=== PATIENT | female | born 1935 | race Caucasian/White ===

== ENCOUNTER → 2019-03-23 10:17 | Outpatient (POV) | payer MEDICARE, SELFPAY | PROVIDERS: Visit Provider Dermatology | DX: Z00.00 Encounter for general adult medical examination without abnormal findings (principal) ==

== ENCOUNTER → 2019-07-20 09:36 | Outpatient (POV) | payer MEDICARE, SELFPAY | PROVIDERS: Visit Provider Dermatology | DX: Z00.00 Encounter for general adult medical examination without abnormal findings (principal) ==

== ENCOUNTER → 2020-01-18 08:57 | Outpatient (POV) | payer MEDICARE, SELFPAY | PROVIDERS: PCP Dermatology; Visit Provider Dermatology | DX: Z00.00 Encounter for general adult medical examination without abnormal findings (principal) ==

== ENCOUNTER 2020-12-28 19:29 | Emergency (ER) | payer MEDICARE, SELFPAY ==
[2020-12-28 19:31] VITALS: BP 126/71; PULSE 71; RESP 16; TEMP 36.6; O2SAT 99; BMI 17.2
[2020-12-28 19:59] VITALS: BP 135/67; PULSE 70; O2SAT 98
--- NOTE | 2020-12-28 20:07 | ECG_ITS ---
APPROVED REPORT Exam: Resting ECG HR:62 bpm ECG Measurements Heart Rate 62 AXES CA 166 P 21 QRSd 86 QRS -3 QT 434 T 62 QTc 440 Conclusion Sinus rhythm with premature atrial complexes Septal infarct, age undetermined Abnormal ECG Electronically signed by : Chad Menendez, 12/30/2020 07:31:57
--- NOTE | 2020-12-28 20:18 | CT_ITS ---
PROCEDURE INFORMATION: Exam: CT Head Without Contrast Exam date and time: 12/28/2020 8:18 PM Age: 85 years old Clinical indication: Injury or trauma; Fall; Blunt trauma (contusions or hematomas); Consciousness not specified; Patient HX: Patient fell and hit her head yesterday on a door. She is dizzy today. ; Additional info: Fall, head injury TECHNIQUE: Imaging protocol: Computed tomography of the head without contrast. Radiation optimization: All CT scans at this facility use at least one of these dose optimization techniques: automated exposure control; mA and/or kV adjustment per patient size (includes targeted exams where dose is matched to clinical indication); or iterative reconstruction. COMPARISON: No relevant prior studies available. FINDINGS: Brain: There is no acute cortical infarction, intracranial hemorrhage or mass. Cerebral ventricles: The ventricles appear mildly enlarged, but not out of proportion to the degree of parenchymal volume loss. Paranasal sinuses: Visualized sinuses are unremarkable. No fluid levels. Mastoid air cells: Visualized mastoid air cells are well aerated. Bones/joints: Unremarkable. No acute fracture. Soft tissues: Unremarkable. IMPRESSION: No acute intracranial findings.
[2020-12-28 20:30] VITALS: BP 144/70; PULSE 71; O2SAT 96
[2020-12-28 20:33] LABS: Basophils % 0.5 % (0.1-2.0); Eosinophils # 0.1 K/mm3 (0.0-0.4); Eosinophils % 1.3 % (0.1-12.0); Hematocrit 43.6 % (37.0-47.0); Hemoglobin 14.5 g/dL (12.2-16.2); Lymphocytes # 0.8 K/mm3 (0.7-4.5); Lymphocytes % 13.8 % (10-50); Mean Corpuscular HGB Conc 33.2 g/dL (31.8-35.4); Mean Corpuscular Hemoglobin 31.8 pg (27.0-31.2); Mean Corpuscular Volume 95.8 fl (81-99); Mean Platelet Volume 7.2 fl (7.4-10.4); Monocytes # 0.2 K/mm3 (0.1-1.0); Monocytes % 3.7 % (1.7-9.3); Neutrophils # 4.6 K/mm3 (1.8-7.8); Neutrophils % 80.8 % (37.0-80.0); Platelet Count 251 K/mm3 (142-424); Red Blood Count 4.55 M/mm3 (4.20-5.40); Red Cell Distribution Width 13.1 % (11.5-17.5); White Blood Count 5.7 K/mm3 (4.8-10.8)
[2020-12-28 20:40] LABS: Chloride 103 mmol/L (98-107); Potassium 4.1 mmoL/L (3.5-5.1); Sodium 138 mmol/L (136-145)
[2020-12-28 20:43] LABS: Alanine Aminotransferase 21 U/L (12-78); Albumin Level 4.7 g/dl (3.5-5.0); Albumin/Globulin Ratio 1.6 (1.1-1.8); Alkaline Phosphatase 68 U/L (38-126); Anion Gap 11.1 mEq/L (5-15); Aspartate Amino Transferase 44 U/L (14-36); Bilirubin,Total 0.8 mg/dl (0.2-1.3); Blood Urea Nitrogen 15 mg/dl (7-17); Calcium 9.5 mg/dl (8.4-10.2); Carbon Dioxide 28 mmol/L (22.0-30.0); Creatinine Clearance Estimated 34 mL/min (50-200); Estimated Glomerular Filt Rate 95 ml/min (>60); GFR (African American) 116 ML/MIN (>60); Globulin 2.9 g/dL (1.3-3.2); Glucose 124 mg/dl (74-100); Total Protein,Serum 7.6 g/dl (6.3-8.2)
--- NOTE | 2020-12-28 20:43 | PC.NURSE ---
pt to CT
--- NOTE | 2020-12-28 20:54 | [facility].EDGENADL ---
ED Disposition Clinical Impression: Concussion Qualifiers: Encounter type: initial encounter Loss of consciousness presence/duration: without LOC Qualified Code(s): S06.0X0A - Concussion without loss of consciousness, initial encounter Closed head injury Qualifiers: Encounter type: initial encounter Qualified Code(s): S09.90XA - Unspecified injury of head, initial encounter Fall Qualifiers: Encounter type: initial encounter Qualified Code(s): W19.XXXA - Unspecified fall, initial encounter Disposition: Home, Self-Care Condition on Discharge: Fair Instructions: DI for Concussion, DI for Postconcussion Syndrome Additional Instructions: You have been evaluated for fall, closed head injury. You have been diagnosed with a concussion. This is a serious brain injury. Over the next few days you may have forgetfulness, headaches, nausea. Please take Tylenol for pain. Follow-up closely with your primary care doctor. Avoid activities that cause headache. Practice brain rest. Return to the emergency department at once if you have any new or worsening symptoms, or any other concerns Referrals: Graciela Lemus [Primary Care Provider] - Time of Disposition: 21:02 - Critical Care Critical Care Time: No Attestation: On 12/28/20, the high probability of a clinically significant, sudden or life threatening deterioration of the following system(s) required my full and direct attention, intervention and personal management. The time I documented below is in addition to time spent performing reported procedures but includes the following listed in this critical care notation. Medical Decision Making - Medical Records Medical records reviewed: Yes: I reviewed the patient's medical records. - Tom Inquiry Pt receiving controlled substance: No Vital Signs: 12/28/20 19:31 12/28/20 19:59 12/28/20 20:30 Temperature 97.9 F Temperature Source Oral Pulse Rate 70 71 Pulse Rate [Right] 71 Respiratory Rate 16 Blood Pressure 135/67 144/70 H Blood Pressure [Right Arm] 126/71 Blood Pressure Mean 89 96 Blood Pressure Mean [Right Arm] 89 Blood Pressure Source [Right Arm] Automatic Cuff 02 Sat by Pulse Oximetry 99 98 96 Oxygen Delivery Method Room Air Room Air Room Air - Lab Data Lab Results 12/28/20 20:27: WBC 5.7, RBC 4.55, Hgb 14.5, Hct 43.6, MCV 95.8, MCH 31.8 H, MCHC 33.2, RDW 13.1, Plt Count 251, MPV 7.2 L, Neut % (Auto) 80.8 H, Lymph % (Auto) 13.8, [place] % (Auto) 3.7, Eos % (Auto) 1.3, Baso % (Auto) 0.5, Neut # (Auto) 4.6, Lymph # (Auto) 0.8, [place] # (Auto) 0.2, Eos # (Auto) 0.1, Baso # (Auto) 0.0 12/28/20 20:27: Sodium 138, Potassium 4.1, Chloride 103, Carbon Dioxide 28, Anion Gap 11.1, BUN 15, Creatinine 0.60, Estimated Creat Clear 34, Estimated GFR 95, Est GFR ( Amer) 116, Glucose 124 H, Calcium 9.5, Total Bilirubin 0.8, AST 44 H, ALT 21, Alkaline Phosphatase 68, Total Protein 7.6, Albumin 4.7, Globulin 2.9, Albumin/Globulin Ratio 1.6 Result diagrams: 12/28/20 20:27 12/28/20 20:27 - CT Data CT Scan: Head Time Received: 21:[address] Reviewed: Yes: I have reviewed the patient's CT results, I have viewed the radiologist's interpretation Preliminary Findings: Normal/NAD Findings Narrative: IMPRESSION: No acute intracranial findings. Medical Decision Narrative: In summary this is an 85-year-old female presenting to the emergency department with head injury, nausea, dizziness. Patient clinically stable on arrival. Vital signs within normal limits. Concern for concussion, intracranial bleed, skull fracture. Will obtain CBC, CMP, noncontrast head CT. Patient's fall was not preceded by dizziness. She has not had neurologic symptoms over the last few days. No gait abnormalities. No vision changes. No numbness or weakness in her arms or legs. Doubt acute ischemic events. Laboratory results are reassuring. Glucose and electrolytes are within normal limits. Renal function adequate. Noncontrast head CT sh
--- NOTE | 2020-12-28 21:01 | PC.NURSE ---
Pt back from CT
[2020-12-28 21:22] VITALS: BP 140/82; PULSE 71; RESP 18; TEMP 36.7
== END 2020-12-28 21:26 | disposition home or self-care (01) ==
PROVIDERS: Emergency Medicine; Emergency Provider Student in an Organized Health Care Education/Training Program; PCP Internal Medicine
DX: S06.0X0A Concussion without loss of consciousness, initial encounter (principal); W07.XXXA Fall from chair, initial encounter; Y92.010 Kitchen of single-family (private) house as the place of occurrence of the external cause; Z87.891 Personal history of nicotine dependence
CPT/HCPCS: 70450; 80053; 85025; 93005; 99282; 99283

== ENCOUNTER 2021-11-04 01:34 | Emergency (ER) | payer MEDICARE, SELFPAY ==
[2021-11-04 01:50] VITALS: BP 170/84; PULSE 63; RESP 18; TEMP 36.4; O2SAT 97; BMI 17.2
--- NOTE | 2021-11-04 01:57 | CT_ITS ---
PROCEDURE INFORMATION: Exam: CT Head Without Contrast Exam date and time: 11/04/2021 2:35 AM Age: 86 years old Clinical indication: Injury or trauma; Fall; Blunt trauma (contusions or hematomas); Without loss of consciousness; Injury details: Fell and hit back of head on bedside night table TECHNIQUE: Imaging protocol: Computed tomography of the head without contrast. Radiation optimization: All CT scans at this facility use at least one of these dose optimization techniques: automated exposure control; mA and/or kV adjustment per patient size (includes targeted exams where dose is matched to clinical indication); or iterative reconstruction. COMPARISON: CT HEAD/BRAIN WO CON 12/28/2020 8:43 PM FINDINGS: Brain: No acute bleed or edema. Advanced central and peripheral cerebral atrophy with changes of chronic deep white matter ischemia within lateral periventricular white matter. Similar findings on 12/28/2020. Cerebral ventricles: Moderate atrophy related global ventriculomegaly. No midline shift. Paranasal sinuses: Small mucous retention cyst anterior aspect of the left maxillary antrum. Visualized sinuses are otherwise unremarkable. No fluid levels. Mastoid air cells: Visualized mastoid air cells are well aerated. Vasculature: Intracranial artery density is normal. Bones/joints: Unremarkable. No acute fracture. Soft tissues: Small scalp contusion right parietooccipital region. IMPRESSION: 1. No evidence of acute intracranial bleed or focal cerebral edema. Advanced central and peripheral cerebral atrophy with moderate atrophy related global ventriculomegaly and chronic deep white matter ischemic changes within lateral periventricular white matter. 2. The calvarium is intact. 3. Small scalp contusion right parietooccipital region.
--- NOTE | 2021-11-04 01:57 | CT_ITS ---
PROCEDURE INFORMATION: Exam: CT Cervical Spine Without Contrast Exam date and time: 11/04/2021 2:38 AM Age: 86 years old Clinical indication: Injury or trauma; Fall; Blunt trauma; Injury details: Hit back of head on bedside night table TECHNIQUE: Imaging protocol: Computed tomography images of the cervical spine without contrast. Radiation optimization: All CT scans at this facility use at least one of these dose optimization techniques: automated exposure control; mA and/or kV adjustment per patient size (includes targeted exams where dose is matched to clinical indication); or iterative reconstruction. COMPARISON: CT HEAD/BRAIN WO CON 11/04/2021 2:35 AM FINDINGS: Bones/joints: No acute fracture. Normal alignment. Discs/Spinal canal/Neural foramina: Intervertebral disc space narrowing at C3-C4, C4-C5, and C5-C6. There is prominent bilateral facet degeneration noted throughout the cervical spine. Left C3-C4, right C5-C6, and left C6-C7 exit foraminal encroachment identified. There is narrowing hypertrophic changes between the anterior arch of C1 and the dens of C2. Calcification of the C1-C2 transverse ligament is noted. Lungs: Lung apices are normal. Soft tissues: Unremarkable. IMPRESSION: 1. No evidence of acute fracture or malalignment. 2. Advanced osteoarthritis of the cervical spine.
--- NOTE | 2021-11-04 01:57 | XR_ITS ---
PROCEDURE INFORMATION: Exam: XR Chest Exam date and time: 11/04/2021 2:38 AM Age: 86 years old Clinical indication: Injury or trauma; Fall; Blunt trauma (contusions or hematomas) TECHNIQUE: Imaging protocol: XR of the chest. Views: 2 views. COMPARISON: No relevant prior studies available. FINDINGS: Lungs: Mild pulmonary emphysema. There are multiple calcified granulomas scattered throughout both lung tran. No consolidation. There is no evidence of pulmonary vascular congestion. Pleural spaces: Unremarkable. No pleural effusion. No pneumothorax. Heart/Mediastinum: Heart size is normal. The superior mediastinum is not widened. Bones/joints: There is dextroconvex lower thoracic and upper lumbar scoliosis. Soft tissues: Changes of left mastectomy. There are clips identified within the left axillary region, compatible with prior left axillary lymph node dissection. IMPRESSION: No acute intrathoracic disease.
[2021-11-04 02:00] VITALS: BP 138/70; PULSE 59; O2SAT 100
--- NOTE | 2021-11-04 02:04 | XR_ITS ---
PROCEDURE INFORMATION: Exam: XR Pelvis Exam date and time: 11/04/2021 2:41 AM Age: 86 years old Clinical indication: Injury or trauma; Fall; Blunt trauma (contusions or hematomas); Bilateral; Pelvic region TECHNIQUE: Imaging protocol: XR pelvis. Views: 1 or 2 view. COMPARISON: No relevant prior studies available. FINDINGS: Bones/joints: No acute fracture. There is benign enthesopathy noted along the greater trochanters. Soft tissues: There are calcified phleboliths within the right hemipelvis. IMPRESSION: No evidence of acute fracture or overlying soft tissue swelling.
--- NOTE | 2021-11-04 02:21 | [facility].EDFALL ---
ED Disposition Clinical Impression: Concussion without loss of consciousness Qualifiers: Encounter type: initial encounter Qualified Code(s): S06.0X0A - Concussion without loss of consciousness, initial encounter Disposition: Home, Self-Care Condition on Discharge: Good Instructions: DI for Concussion Additional Instructions: see pcp for follow up Referrals: Graciela Lemus [Primary Care Provider] - - Critical Care Critical Care Time: No Attestation: On , the high probability of a clinically significant, sudden or life threatening deterioration of the following system(s) required my full and direct attention, intervention and personal management. The time I documented below is in addition to time spent performing reported procedures but includes the following listed in this critical care notation. Medical Decision Making - Medical Records Medical records reviewed: Yes: I reviewed the patient's medical records. - Tom Inquiry Pt receiving controlled substance: No Vital Signs: 11/04/21 01:50 11/04/21 02:00 Temperature 97.6 F Temperature Source Oral Pulse Rate 59 L Pulse Rate [Apical] 63 Respiratory Rate 18 Blood Pressure 138/70 Blood Pressure [Right Arm] 170/84 H Blood Pressure Mean 92 Blood Pressure Mean [Right Arm] 112 Blood Pressure Source [Right Arm] Automatic Cuff Blood Pressure Position [Right Arm] Sitting 02 Sat by Pulse Oximetry 97 100 Oxygen Delivery Method Room Air - Lab Data Lab results reviewed: Yes: I reviewed the patient's lab results. Orders (Tests/Meds): ORDERS Category Date Time Status XR chest 2V Stat Exams 11/04/21 01:57 Taken XR pelvis 1-2V Stat Exams 11/04/21 02:04 Taken - Radiology Data #1 Image(s): Chest, Pelvis Image Reviewed: Yes I have reviewed radiologist's interpretation Preliminary Findings: No Fracture Seen - CT Data CT Scan: Head, C-Spine Time Received: 03:[address] Reviewed: Yes: I have viewed the radiologist's interpretation Preliminary Findings: Abnormal, No Fracture Seen Medical Decision Narrative: stable exam and xrays Fall HPI - General Chief Complaint: Fall Stated Complaint: AO 11/04/21 00:30 knot on head Time Seen by Provider: 11/04/21 02:21 Mode of Arrival: Ambulatory Source of Information: Patient, Medical Record Limitations: No Limitations Description of Symptoms (Recalled from ER Triage Doc. by RN): Per patient, roughly one hour ago she got out of bed to let her dog into her bedroom and when she went to get back into bed she slipped on a sock and hit the back of her head on the corner of her bedside table. Patient states that she never lost consciousness, nor did she vomit. Denies any dizziness. Patient does have two knots on the back of her head. - History of Present Illness HPI Narrative: trip type injury and hit head w/o loc - MD complaint: fall Onset (ago): hour(s) Fall from: standing Fall witnessed: no Place fall occurred: home Loss of consciousness: none Symptoms prior to fall: none Context: tripped/slipped Location of injury: head, neck Severity: moderate Associated symptoms (after fall): denies - Related Data Home Medications Medication Instructions Recorded Confirmed Donepezil HCl [Aricept 10mg 5 mg PO DIRECTED 12/28/20 11/04/21 tablet] Amlodipine Besylate [Amlodipine 5 mg PO DAILY 11/04/21 11/04/21 10mg Tab] Citalopram Hydrobromide 10 mg PO DAILY 11/04/21 11/04/21 [Citalopram 10mg Tablet] Erythromycin Base [Erythromycin 3.5 gm EYE-LEFT DAILY 11/04/21 11/04/21 3.5gm opth oinment] Allergies Allergy/AdvReac Type Severity Reaction Status Date / Time Sulfa (Sulfonamide Allergy Mild I-RASH Unverified 06/17/17 14:41 Antibiotics) [SULFA (SULFONAMIDE ANTIBIOTICS)] [facility] History - Hepatitis A Screen Attestation statement:: This patient has been screened for Hepatitis A risk factors. I have reviewed the patient's past medical hist
[2021-11-04 03:28] VITALS: BP 138/70; PULSE 60; RESP 18; TEMP 36.7; O2SAT 99
== END 2021-11-04 03:30 | disposition home or self-care (01) ==
PROVIDERS: Emergency Provider Emergency Medicine; PCP Internal Medicine
DX: S06.0X0A Concussion without loss of consciousness, initial encounter (principal); Z79.899 Other long term (current) drug therapy; Z88.2 Allergy status to sulfonamides; Z87.891 Personal history of nicotine dependence; Z85.3 Personal history of malignant neoplasm of breast; Z90.13 Acquired absence of bilateral breasts and nipples; W17.89XA Other fall from one level to another, initial encounter; Y92.003 Bedroom of unspecified non-institutional (private) residence as the place of occurrence of the external cause
CPT/HCPCS: 70450; 71046; 72125; 72170; 99285

== ENCOUNTER 2024-06-21 21:28 | Emergency (ER) | payer MEDICARE, SELFPAY ==
[2024-06-21 21:28] VITALS: BP 128/61; PULSE 64; RESP 18; TEMP 36.5; O2SAT 99; BMI 21.6
--- NOTE | 2024-06-21 21:36 | ED_ITS ---
<Statement entered by Leatha Thompson DO - 06/21/24 23:57> I was consulted by the BRITT, and we discussed the complexity of the problems being addressed. I approved the treatment and management plan for this patient's care in the emergency department, thus performing a substantive portion of the medical decision making. Patient neurologically intact upon arrival with concern for possible seizure x 2 versus syncope. Given possible seizure x 2, loaded with Keppra as an antiepileptic. Leatha Thompson DO Discharge Plan Disposition Patient Disposition: Home, Self-Care Prescriptions Prescriptions: New diazepam 10 mg/spray (0.1 mL) spray,non-aerosol 10 mg intranasal ONCE Qty: 2 0RF No Action donepezil 10 MG tablet 5 mg PO DIRECTED Rx Instructions: pt to take 1/2 tab every morning for 1 month then increase to 1 tab. amlodipine 10 MG tablet 5 mg PO DAILY erythromycin 3.5 GM ointment 3.5 gm EYE-LEFT DAILY Patient Comments: APPLY SMALL AMOUNT OF OINTMENT TO EACH EYE AT BEDTIME citalopram 10 MG tablet 10 mg PO DAILY Referrals Follow up/Referrals: Provider,Referral, MD [Primary Care Provider] - See instructions Activity Restrictions/Add. Instructions Additional Instructions/Restrictions: Follow-up with your primary care provider for reassessment of your thyroid levels, thyroid nodules, irregularity on the blood vessel of the heart, and further assessment of possible seizures. If there is another seizure-like episode, I sent a benzodiazepine based nasal spray to give if the patient is having a seizure. Clinical Impressions Clinical Impression: Seizure-like activity, Low TSH level, Low T4, Thyroid nodule, Abnormal computed tomography angiography of head Instructions Patient Instructions: DI for Seizure Disorder -- Adult, DI for Seizure (Not Epilepsy/Seizure Disorder), DI for Seizure Disorder -- Child Print Language Print Language: American Discharge ED Provider: Sherwin Rodriguez General Adult HPI <MELANIE Ny - Last Filed: 06/21/24 22:58> General Chief complaint: Seizure Stated complaint: seizure Time Seen by Provider: 06/21/24 21:36 History of Present Illness HPI narrative: Patient presents for evaluation of possible seizure. Patient at baseline has dementia thus is an unreliable historian. All of the history comes from her caregiver who was present when the events occurred. Patient's caregiver is present at the time my exam. Apparently they were sitting at kitchen table eating and patient had an episode where her head slumped back and she began having jerking motions of her head. Patient was unresponsive for approximately 2 minutes. Caregivers ports that she was disoriented for period of time after this event. She does not know for how long. She then had another episode a very short time later again with shaking of her head followed by an episode of vomiting. Again she was disoriented for period of time afterwards however regained consciousness without assistance. She does not have a known seizure disorder. Patient herself has no recollection of events and denies currently any chest pain shortness of breath fever chills hemoptysis hematochezia melena nausea vomiting diarrhea. Patient appears to be at her functional baseline according to her caregiver. Related Data Home Medications ?Medication ?Instructions ?Recorded ?Confirmed donepezil 10 mg tablet 5 mg PO DIRECTED memory 12/28/20 11/04/21 amlodipine 10 mg tablet 5 mg PO DAILY htn 11/04/21 11/04/21 citalopram 10 mg tablet 10 mg PO DAILY Depression 11/04/21 11/04/21 erythromycin 5 mg/gram (0.5 %) eye 3.5 gm EYE-LEFT DAILY Infection 11/04/21 11/04/21 ointment Previous Rx's ?Medication ?Instructions ?Recorded diazepam 10 mg/spray (0.1 mL) 10 mg (0.1 mL) intranasal ONCE #2 06/22/24 nasal spray sprays Allergies Allergy/AdvReac Type Severity Reaction Status Date / Time Sulfa (Sulfonamide Allergy Mild I-RASH Verified 06/21/24 21:53 Antibiotics) (SULFA (SULFONAMIDE ANTIBIOTICS)) [facility] <MELANIE Ny - Last Filed: 06/21/24 22:58> [facility] Disclaimer: The information contained in this section may have been updated after the patient was seen, as this information can be updated by other users. Social History Smoking Status: Unknown if ever smoked second hand exposure: No alcohol intake: current alcohol intake frequency: 0-2 drinks per day current occupational status: retired Travel in the last 8 weeks: None Other Medical History Have you received the Flu Vaccine for this season: Yes Have you received the Pneumonia Vaccine: No <MELANIE Ny - Last Filed: 06/21/24 22:58> ROS Obtained: Yes Systems reviewed as appropriate & no additional complaints except as documented Physical Exam <MELANIE Ny - Last Filed: 06/21/24 22:58> General General appearance: alert and in no apparent distress Respiratory Respiratory exam: Present normal lung sounds bilaterally Cardiovascular Cardiovascular exam: Present regular rate Neurological Exam Neurological exam: Present alert, CN II-XII intact and normal gait; Absent oriented X3 (Oriented to person but not place or circumstance) or motor sensory deficit Medical Decision Making <MELANIE Ny - Last Filed: 06/21/24 22:58> Medical Records Medical records reviewed: Yes I reviewed the patient's medical records. Screening: Per USPSTF and CDC recommendations, given the prevalence of disease in our region, it is our hospital?s policy to screen for HIV and viral Hepatitis for all patients aged 18 and over and those with ongoing risk factors. Tom Inquiry Pt receiving controlled substance: No Vital Signs: 06/21/24 21:28 06/22/24 01:57 Temperature 97.7 F 97.9 F Temperature Source Oral Pulse Rate 57 L Pulse Rate [Left] 64 Respiratory Rate 18 16 Blood Pressure 114/69 Blood Pressure [Right Arm] 128/61 Blood Pressure Mean [Right Arm] 83 02 Sat by Pulse Oximetry 99 Oxygen Delivery Method Room Air Lab Data Lab results reviewed: Yes I reviewed the patient's lab results. Lab Results 06/21/24 00:35: Urine Color Yellow, Urine Appearance Clear, Urine pH 6.5, Ur Specific Brady 1.015, Urine Protein Negative, Urine Glucose (UA) Negative, Urine Ketones Negative, Urine Blood Trace-i, Urine Nitrate Negative, Urine Bilirubin Negative, Urine Urobilinogen 0.2, Ur Leukocyte Esterase Negative, Urine RBC 3-5, Urine WBC 3-5, Ur Squamous Epith Cells Occasional, Urine Bacteria Trace, Hyaline Casts 3-5 06/21/24 20:45: WBC 5.1, RBC 4.35, Hgb 13.2, Hct 41.5, MCV 95.4, MCH 30.3, MCHC 31.8, RDW 13.1, Plt Count 253, MPV 9.3, Neut % (Auto) 53.2, Lymph % (Auto) 30.9, [place] % (Auto) 8.2, Eos % (Auto) 6.5, Baso % (Auto) 0.8, Neut # (Auto) 2.7, Lymph # (Auto) 1.6, [place] # (Auto) 0.4, Eos # (Auto) 0.3, Baso # (Auto) 0.0, PT 10.3, INR 0.91, Sodium 137, Potassium 3.4 L, Chloride 107, Carbon Dioxide 28, Anion Gap 5.4, BUN 23 H, Creatinine 0.80, Estimated Creat Clear 37, Estimated GFR 68, Est GFR ( Amer) 82, Glucose 108 H, Calcium 9.2, Magnesium 2.2, Total Bilirubin 0.4, AST 44 H, ALT 26, Alkaline Phosphatase 74, Total Creatine Kinase 110, Troponin I < 0.01, Total Protein 7.3, Albumin 4.1, Globulin 3.2, Albumin/Globulin Ratio 1.3, TSH 0.30 L, Free T4 Index 2.7 L, Thyroxine (T4) 8.5, T3 Uptake 32 06/21/24 22:22: Chlamy pneumoniae PCR Not detected, Adenovirus (PCR) Not detected, B. pertussis DNA (PCR) Not detected, Coronavirus OC43 (PCR) Not detected, Coronavirus HKU1 (PCR) Not detected, Coronavirus 229E (PCR) Not detected, SARS-CoV-2 (PCR) Not detected, Coronavirus NL63 (PCR) Not detected, Human Metapneumovir PCR Not detected, Influenza A (H1) PCR Not detected, Influ A (H1N1/09) PCR Not detected, Influenza A (H3) PCR Not detected, Influenza Type A (PCR) Not detected, Influenza Type B (PCR) Not detected, M. pneumoniae (PCR) Not detected, Parainfluenza 1 (PCR) Not detected, Parainfluenza 2 (PCR) Not detected, Parainfluenza 3 (PCR) Not detected, Parainfluenza 4 (PCR) Not detected, RSV (PCR) Not detected, Entero/Rhino (PCR) Not detected 06/22/24 01:13: Troponin I < 0.01 06/21/24 20:45 06/21/24 20:45 Orders (Tests/Meds): ED MEDICATIONS Discontinued Medications Generic Name Dose Route Start Last Admin Trade Name Freq PRN Reason Stop Dose Admin Sodium Chloride 1,000 mls @ 999 mls/hr 06/21/24 21:45 06/21/24 21:55 Sod Chlor 0.9% 1000ml Bag IV 06/21/24 22:45 999 mls/hr .Q1H1M ONE Administration Iopamidol 80 ml 06/21/24 22:20 06/21/24 22:23 Iopamidol-370 (76%);100ml Bottle IV 06/21/24 22:21 80 ml ONCE ONE Administration Ondansetron HCl 4 mg 06/21/24 21:45 06/21/24 21:53 Ondansetron 4mg/2ml Vial IV 06/21/24 21:46 4 mg ONCE ONE Administration Sodium Chloride 40 ml 06/21/24 22:20 06/21/24 22:22 0.9 % Sodium Chloride 50 Ml Vial IV 06/21/24 22:21 40 ml ONCE ONE Administration Sodium Chloride 10 ml 06/21/24 22:20 06/21/24 22:22 Sodium Chloride 0.9% 10ml Syr (Rad Only) IV 06/21/24 22:21 10 ml ONCE ONE Administration ORDERS Category Date Time Status CT angio head Stat Cat Scan 06/21/24 21:[address] angio neck Stat Cat Scan 06/21/24 21:[address] head/brain wo con Stat Cat Scan 06/21/24 21:45 Completed CBC w/Auto Diff [Complete Blood Count Auto Diff] Stat Lab 06/21/24 20:45 Completed CK [Creatine Kinase] Stat Lab 06/21/24 20:45 Completed CMP [Comprehensive Metabolic Panel] Stat Lab 06/21/24 20:45 Completed Full Resp Panel w/COVID ([facility]) Routine Lab 06/21/24 22:22 Completed INR [Prothrombin Time INR] Stat Lab 06/21/24 20:45 Completed Magnesium Stat Lab 06/21/24 20:45 Completed Thyroid Panel Stat Lab 06/21/24 20:45 Completed Trop I [Troponin I] Stat Lab 06/21/24 20:45 Completed Troponin I Q3H Lab 06/22/24 01:13 Completed Troponin I Q3H Lab 06/22/24 04:00 Ordered UA [Urinalysis and Microscopic] Stat Lab 06/21/24 00:35 Completed HEART Score History (anamnesis): Slightly suspicious ECG: Normal Age: >65 years Risk factors: 1-2 risk factors Troponin: </= normal limit HEART Score: 3 Medical Decision Narrative: In summary patient is a 89-year-old female who presents to the emergency department for evaluation of possible seizure. Patient is hemodynamically upon arrival, afebrile currently. Physical exam is remarkable for a patient who appears to be awake and interactive but is oriented only to person not place or circumstance. She has no focal neurologic deficits currently. Pupils equal round reactive to light commendation. Cranial nerves II through XII are intact grossly to exam. Breath sounds are clear and equal bilaterally to the bases with adventitious sounds. Abdomen is soft and nontender with no rebound or guarding or rigidity normal bowel sounds.. Differential diagnosis includes seizure disorder versus space-occupying lesion versus stroke etc. Initial workup will be conducted with CT scan of the head without contrast CTA of the head and neck hematologic labs urinalysis. Initial workup ordered and pending at the time of handoff to Dr. Rodriguez at 2300 hrs. <Sherwin Rodriguez MD - Last Filed: 06/22/24 02:41> Vital Signs: 06/21/24 21:28 06/22/24 01:57 Temperature 97.7 F 97.9 F Temperature Source Oral Pulse Rate 57 L Pulse Rate [Left] 64 Respiratory Rate 18 16 Blood Pressure 114/69 Blood Pressure [Right Arm] 128/61 Blood Pressure Mean [Right Arm] 83 02 Sat by Pulse Oximetry 99 Oxygen Delivery Method Room Air Lab Data Lab Results 06/21/24 00:35: Urine Color Yellow, Urine Appearance Clear, Urine pH 6.5, Ur Specific Brady 1.015, Urine Protein Negative, Urine Glucose (UA) Negative, Urine Ketones Negative, Urine Blood Trace-i, Urine Nitrate Negative, Urine Bilirubin Negative, Urine Urobilinogen 0.2, Ur Leukocyte Esterase Negative, Urine RBC 3-5, Urine WBC 3-5, Ur Squamous Epith Cells Occasional, Urine Bacteria Trace, Hyaline Casts 3-5 06/21/24 20:45: WBC 5.1, RBC 4.35, Hgb 13.2, Hct 41.5, MCV 95.4, MCH 30.3, MCHC 31.8, RDW 13.1, Plt Count 253, MPV 9.3, Neut % (Auto) 53.2, Lymph % (Auto) 30.9, [place] % (Auto) 8.2, Eos % (Auto) 6.5, Baso % (Auto) 0.8, Neut # (Auto) 2.7, Lymph # (Auto) 1.6, [place] # (Auto) 0.4, Eos # (Auto) 0.3, Baso # (Auto) 0.0, PT 10.3, INR 0.91, Sodium 137, Potassium 3.4 L, Chloride 107, Carbon Dioxide 28, Anion Gap 5.4, BUN 23 H, Creatinine 0.80, Estimated Creat Clear 37, Estimated GFR 68, Est GFR ( Amer) 82, Glucose 108 H, Calcium 9.2, Magnesium 2.2, Total Bilirubin 0.4, AST 44 H, ALT 26, Alkaline Phosphatase 74, Total Creatine Kinase 110, Troponin I < 0.01, Total Protein 7.3, Albumin 4.1, Globulin 3.2, Albumin/Globulin Ratio 1.3, TSH 0.30 L, Free T4 Index 2.7 L, Thyroxine (T4) 8.5, T3 Uptake 32 06/21/24 22:22: Chlamy pneumoniae PCR Not detected, Adenovirus (PCR) Not detected, B. pertussis DNA (PCR) Not detected, Coronavirus OC43 (PCR) Not detected, Coronavirus HKU1 (PCR) Not detected, Coronavirus 229E (PCR) Not detected, SARS-CoV-2 (PCR) Not detected, Coronavirus NL63 (PCR) Not detected, Human Metapneumovir PCR Not detected, Influenza A (H1) PCR Not detected, Influ A (H1N1/09) PCR Not detected, Influenza A (H3) PCR Not detected, Influenza Type A (PCR) Not detected, Influenza Type B (PCR) Not detected, M. pneumoniae (PCR) Not detected, Parainfluenza 1 (PCR) Not detected, Parainfluenza 2 (PCR) Not detected, Parainfluenza 3 (PCR) Not detected, Parainfluenza 4 (PCR) Not detected, RSV (PCR) Not detected, Entero/Rhino (PCR) Not detected 06/22/24 01:13: Troponin I < 0.01 Orders (Tests/Meds): ED MEDICATIONS Discontinued Medications Generic Name Dose Route Start Last Admin Trade Name Freq PRN Reason Stop Dose Admin Sodium Chloride 1,000 mls @ 999 mls/hr 06/21/24 21:45 06/21/24 21:55 Sod Chlor 0.9% 1000ml Bag IV 06/21/24 22:45 999 mls/hr .Q1H1M ONE Administration Iopamidol 80 ml 06/21/24 22:20 06/21/24 22:23 Iopamidol-370 (76%);100ml Bottle IV 06/21/24 22:21 80 ml ONCE ONE Administration Ondansetron HCl 4 mg 06/21/24 21:45 06/21/24 21:53 Ondansetron 4mg/2ml Vial IV 06/21/24 21:46 4 mg ONCE ONE Administration Sodium Chloride 40 ml 06/21/24 22:20 06/21/24 22:22 0.9 % Sodium Chloride 50 Ml Vial IV 06/21/24 22:21 40 ml ONCE ONE Administration Sodium Chloride 10 ml 06/21/24 22:20 06/21/24 22:22 Sodium Chloride 0.9% 10ml Syr (Rad Only) IV 06/21/24 22:21 10 ml ONCE ONE Administration ORDERS Category Date Time Status CT angio head Stat Cat Scan 06/21/24 21:[address] angio neck Stat Cat Scan 06/21/24 21:[address] head/brain wo con Stat Cat Scan 06/21/24 21:45 Completed CBC w/Auto Diff [Complete Blood Count Auto Diff] Stat Lab 06/21/24 20:45 Completed CK [Creatine Kinase] Stat Lab 06/21/24 20:45 Completed CMP [Comprehensive Metabolic Panel] Stat Lab 06/21/24 20:45 Completed Full Resp Panel w/COVID ([facility]) Routine Lab 06/21/24 22:22 Completed INR [Prothrombin Time INR] Stat Lab 06/21/24 20:45 Completed Magnesium Stat Lab 06/21/24 20:45 Completed Thyroid Panel Stat Lab 06/21/24 20:45 Completed Trop I [Troponin I] Stat Lab 06/21/24 20:45 Completed Troponin I Q3H Lab 06/22/24 01:13 Completed Troponin I Q3H Lab 06/22/24 04:00 Ordered UA [Urinalysis and Microscopic] Stat Lab 06/21/24 00:35 Completed ECG Data Tracing #1: I reviewed this ECG and interpreted as documented below: Sinus bradycardia, rate of 58, first-degree AV block noted, flattened/inverted T waves in V5 and 6. ECG initial impression date: 06/21/24 ECG initial impression time: 23:25 HEART Score HEART Score: 3 Medical Decision Narrative: In summary patient is a 89-year-old female who presents to the emergency department for evaluation of possible seizure. Patient is hemodynamically upon arrival, afebrile currently. Physical exam is remarkable for a patient who appears to be awake and interactive but is oriented only to person not place or circumstance. She has no focal neurologic deficits currently. Pupils equal round reactive to light commendation. Cranial nerves II through XII are intact grossly to exam. Breath sounds are clear and equal bilaterally to the bases with adventitious sounds. Abdomen is soft and nontender with no rebound or guarding or rigidity normal bowel sounds.. Differential diagnosis includes seizure disorder versus space-occupying lesion versus stroke etc. Initial workup will be conducted with CT scan of the head without contrast CTA of the head and neck hematologic labs urinalysis. Initial workup ordered and pending at the time of handoff to Dr. Rodriguez at 2300 hrs. Jennifer THOMAS: I assumed care of the patient at the time of handoff from the prior provider. On reassessment patient steve hemodynamically stable and has had no further seizure-like activity. 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 CT imaging shows a small aneurysm versus infundibulum that is poorly defined within the left PCOM. Radiology recommends MRA for further assessment. CT scan also shows some thyroid nodules. I had an interactive discussion with patient, patient's family and POA. The story does seem consistent with seizure. Besides Alzheimer's, she has no history of DANDY TENDER disease. On her workup otherwise, her EKG showed only a first-degree AV block, her electrolytes and troponin were unremarkable. Given this is a possible first-time seizure, I do not think that patient necessarily requires initiation of chronic seizure medication. Given the abnormalities found on CT, patient does require further assessment both of her brain with MRI/MRA and ultrasound of the thyroid. Her thyroid and HPA axis also need further assessment with her PCP. I ultimately discharged the patient with nasal diazepam as a rescue medication as well as strict return precautions. <Leatha Thompson, DO - Last Filed: 06/21/24 23:56> Vital Signs: 06/21/24 21:28 06/22/24 01:57 Temperature 97.7 F 97.9 F Temperature Source Oral Pulse Rate 57 L Pulse Rate [Left] 64 Respiratory Rate 18 16 Blood Pressure 114/69 Blood Pressure [Right Arm] 128/61 Blood Pressure Mean [Right Arm] 83 02 Sat by Pulse Oximetry 99 Oxygen Delivery Method Room Air Lab Data Lab Results 06/21/24 00:35: Urine Color Yellow, Urine Appearance Clear, Urine pH 6.5, Ur Specific Brady 1.015, Urine Protein Negative, Urine Glucose (UA) Negative, Urine Ketones Negative, Urine Blood Trace-i, Urine Nitrate Negative, Urine Bilirubin Negative, Urine Urobilinogen 0.2, Ur Leukocyte Esterase Negative, Urine RBC 3-5, Urine WBC 3-5, Ur Squamous Epith Cells Occasional, Urine Bacteria Trace, Hyaline Casts 3-5 06/21/24 20:45: WBC 5.1, RBC 4.35, Hgb 13.2, Hct 41.5, MCV 95.4, MCH 30.3, MCHC 31.8, RDW 13.1, Plt Count 253, MPV 9.3, Neut % (Auto) 53.2, Lymph % (Auto) 30.9, [place] % (Auto) 8.2, Eos % (Auto) 6.5, Baso % (Auto) 0.8, Neut # (Auto) 2.7, Lymph # (Auto) 1.6, [place] # (Auto) 0.4, Eos # (Auto) 0.3, Baso # (Auto) 0.0, PT 10.3, INR 0.91, Sodium 137, Potassium 3.4 L, Chloride 107, Carbon Dioxide 28, Anion Gap 5.4, BUN 23 H, Creatinine 0.80, Estimated Creat Clear 37, Estimated GFR 68, Est GFR ( Amer) 82, Glucose 108 H, Calcium 9.2, Magnesium 2.2, Total Bilirubin 0.4, AST 44 H, ALT 26, Alkaline Phosphatase 74, Total Creatine Kinase 110, Troponin I < 0.01, Total Protein 7.3, Albumin 4.1, Globulin 3.2, Albumin/Globulin Ratio 1.3, TSH 0.30 L, Free T4 Index 2.7 L, Thyroxine (T4) 8.5, T3 Uptake 32 06/21/24 22:22: Chlamy pneumoniae PCR Not detected, Adenovirus (PCR) Not detected, B. pertussis DNA (PCR) Not detected, Coronavirus OC43 (PCR) Not detected, Coronavirus HKU1 (PCR) Not detected, Coronavirus 229E (PCR) Not detected, SARS-CoV-2 (PCR) Not detected, Coronavirus NL63 (PCR) Not detected, Human Metapneumovir PCR Not detected, Influenza A (H1) PCR Not detected, Influ A (H1N1/09) PCR Not detected, Influenza A (H3) PCR Not detected, Influenza Type A (PCR) Not detected, Influenza Type B (PCR) Not detected, M. pneumoniae (PCR) Not detected, Parainfluenza 1 (PCR) Not detected, Parainfluenza 2 (PCR) Not detected, Parainfluenza 3 (PCR) Not detected, Parainfluenza 4 (PCR) Not detected, RSV (PCR) Not detected, Entero/Rhino (PCR) Not detected 06/22/24 01:13: Troponin I < 0.01 Orders (Tests/Meds): ED MEDICATIONS Discontinued Medications Generic Name Dose Route Start Last Admin Trade Name Freq PRN Reason Stop Dose Admin Sodium Chloride 1,000 mls @ 999 mls/hr 06/21/24 21:45 06/21/24 21:55 Sod Chlor 0.9% 1000ml Bag IV 06/21/24 22:45 999 mls/hr .Q1H1M ONE Administration Iopamidol 80 ml 06/21/24 22:20 06/21/24 22:23 Iopamidol-370 (76%);100ml Bottle IV 06/21/24 22:21 80 ml ONCE ONE Administration Ondansetron HCl 4 mg 06/21/24 21:45 06/21/24 21:53 Ondansetron 4mg/2ml Vial IV 06/21/24 21:46 4 mg ONCE ONE Administration Sodium Chloride 40 ml 06/21/24 22:20 06/21/24 22:22 0.9 % Sodium Chloride 50 Ml Vial IV 06/21/24 22:21 40 ml ONCE ONE Administration Sodium Chloride 10 ml 06/21/24 22:20 06/21/24 22:22 Sodium Chloride 0.9% 10ml Syr (Rad Only) IV 06/21/24 22:21 10 ml ONCE ONE Administration ORDERS Category Date Time Status CT angio head Stat Cat Scan 06/21/24 21:[address] angio neck Stat Cat Scan 06/21/24 21:[address] head/brain wo con Stat Cat Scan 06/21/24 21:45 Completed CBC w/Auto Diff [Complete Blood Count Auto Diff] Stat Lab 06/21/24 20:45 Completed CK [Creatine Kinase] Stat Lab 06/21/24 20:45 Completed CMP [Comprehensive Metabolic Panel] Stat Lab 06/21/24 20:45 Completed Full Resp Panel w/COVID ([facility]) Routine Lab 06/21/24 22:22 Completed INR [Prothrombin Time INR] Stat Lab 06/21/24 20:45 Completed Magnesium Stat Lab 06/21/24 20:45 Completed Thyroid Panel Stat Lab 06/21/24 20:45 Completed Trop I [Troponin I] Stat Lab 06/21/24 20:45 Completed Troponin I Q3H Lab 06/22/24 01:13 Completed Troponin I Q3H Lab 06/22/24 04:00 Ordered UA [Urinalysis and Microscopic] Stat Lab 06/21/24 00:35 Completed HEART Score HEART Score: 3 Critical Care <MELANIE Ny - Last Filed: 06/21/24 22:58> Critical Care Time Critical Care Time: No <Leatha Thompson DO - Last Filed: 06/21/24 23:56> Critical Care Time Critical Care Time: Yes Attestation: On 06/21/24, the high probability of a clinically significant, sudden or life threatening deterioration of the following system(s) required my full and direct attention, intervention and personal management. The time I documented below is in addition to time spent performing reported procedures but includes the following listed in this critical care notation. Total Time Total Critical Care Time: 30
--- NOTE | 2024-06-21 21:45 | CT_ITS ---
PROCEDURE INFORMATION: Exam: CT Head Without Contrast Exam date and time: 06/21/2024 9:55 PM Age: 89 years old Clinical indication: Other: Seizure TECHNIQUE: Imaging protocol: Computed tomography of the head without contrast. Radiation optimization: All CT scans at this facility use at least one of these dose optimization techniques: automated exposure control; mA and/or kV adjustment per patient size (includes targeted exams where dose is matched to clinical indication); or iterative reconstruction. COMPARISON: CT HEAD/BRAIN WO CON 11/04/2021 2:35 AM FINDINGS: Brain: No evidence for intracranial hemorrhage, mass lesions or acute stroke. Intracranial vascular calcifications. Mild small vessel ischemic change in the periventricular white matter. Cerebral ventricles: Mild ventricular prominence. Pituitary gland and sella: Negative Paranasal sinuses: Visualized sinuses are unremarkable. No fluid levels. Mastoid air cells: Visualized mastoid air cells are well aerated. Orbital cavities: Negative. Parotid and submandibular glands: Negative Bones: Unremarkable. No acute fracture. Soft tissues: Unremarkable. Vasculature: Negative. Other findings: Moderate generalized atrophy. IMPRESSION: 1. No evidence for intracranial hemorrhage, mass lesions or acute stroke. 2. Intracranial vascular calcifications. 3. Moderate generalized atrophy. 4. Mild small vessel ischemic change in the periventricular white matter. 5. Mild ventricular prominence.
--- NOTE | 2024-06-21 21:50 | CT_ITS ---
PROCEDURE INFORMATION: Exam: CTA Neck With Contrast Exam date and time: 06/21/2024 10:11 PM Age: 89 years old Clinical indication: Other: Seizure TECHNIQUE: Imaging protocol: Computed tomographic angiography of the neck with contrast. Exam focused on the cervical segments of the vasculature. 3D rendering (Not supervised by radiologist): MIP and/or 3D reconstructed images were created by the technologist. Radiation optimization: All CT scans at this facility use at least one of these dose optimization techniques: automated exposure control; mA and/or kV adjustment per patient size (includes targeted exams where dose is matched to clinical indication); or iterative reconstruction. Contrast material: ISOVUE 370; Contrast volume: 80 ml; Contrast route: INTRAVENOUS (IV); COMPARISON: CT ANGIO HEAD 06/21/2024 10:11 PM FINDINGS: Right common carotid artery: No stenosis. No dissection or occlusion. Right internal carotid artery: No stenosis of the extracranial segment. No dissection or occlusion. Right external carotid artery: No occlusion or stenosis of the origin. Left common carotid artery: No stenosis. No dissection or occlusion. Left internal carotid artery: No stenosis of the extracranial segment. No dissection or occlusion. Left external carotid artery: No occlusion or stenosis of the origin. Right vertebral artery: No stenosis. No dissection or occlusion. Left vertebral artery: No stenosis. No dissection or occlusion. Thyroid: Low-density thyroid lesions in both thyroid lobes; recommend ultrasound. Soft tissues: Normal. No significant soft tissue swelling. Bones/joints: Multilevel degenerative change of the cervical spine with facet hypertrophic change at multiple levels. IMPRESSION: 1. No evidence for occlusion, stenosis or dissection of the cervical vessels. 2. Low-density thyroid lesions in both thyroid lobes; recommend ultrasound. 3. Multilevel degenerative change of the cervical spine with facet hypertrophic change at multiple levels. COMMENTS: Consistent with the [employer]'s Incidental Findings Committee white paper (J Am Eron Radiol 2015): In patients aged 35 years and older with an incidental thyroid nodule equal to or greater than 1.[address], MRI or extrathyroidal US, further evaluation with dedicated thyroid US is recommended for patients with normal life expectancy and without comorbidities. For smaller nodules without suspicious features, no further evaluation or follow up is recommended. REFERENCES: NASCET CRITERIA. The degree of stenosis in the cervical segment of the internal carotid artery is based on NASCET criteria. Normal is no stenosis. Mild is less than 50% stenosis. Moderate is 50-69% stenosis. Severe is 70% to 99% stenosis. Total occlusion is no detectable patent lumen.
--- NOTE | 2024-06-21 21:50 | CT_ITS ---
PROCEDURE INFORMATION: Exam: CTA Head With Contrast, Arteriography Exam date and time: 06/21/2024 10:11 PM Age: 89 years old Clinical indication: Other: Seizure TECHNIQUE: Imaging protocol: Computed tomographic angiography of the head with contrast. Exam focused on the arteries. 3D rendering (Not supervised by radiologist): MIP and/or 3D reconstructed images were created by the technologist. Radiation optimization: All CT scans at this facility use at least one of these dose optimization techniques: automated exposure control; mA and/or kV adjustment per patient size (includes targeted exams where dose is matched to clinical indication); or iterative reconstruction. Contrast material: ISOVUE 370; Contrast volume: 80 ml; Contrast route: INTRAVENOUS (IV); COMPARISON: CT HEAD/BRAIN WO CON 06/21/2024 9:55 PM FINDINGS: ANTERIOR CIRCULATION: Right internal carotid artery: Intracranial segment is patent with no significant stenosis. No aneurysm. Right middle cerebral artery: No occlusion or significant stenosis. No aneurysm. Right anterior cerebral artery: No occlusion or significant stenosis. No aneurysm. Left internal carotid artery: Intracranial segment is patent with no significant stenosis. No aneurysm. Left middle cerebral artery: No occlusion or significant stenosis. No aneurysm. Left anterior cerebral artery: No occlusion or significant stenosis. No aneurysm. POSTERIOR CIRCULATION: Right vertebral artery: No occlusion or significant stenosis. No aneurysm. Left vertebral artery: No occlusion or significant stenosis. No aneurysm. Basilar artery: No occlusion or significant stenosis. No aneurysm. Right posterior cerebral artery: No occlusion or significant stenosis. No aneurysm. Left posterior cerebral artery: No occlusion or significant stenosis. No aneurysm. Right posterior communicating artery: Patent right PCOM. Left posterior communicating artery: There is a 1.2 mm left PCOM infundibulum or aneurysm axial image 7/391. Brain: No definite mass, mass effect, or midline shift. Cerebral ventricles: No ventriculomegaly. Bones/joints: Unremarkable. No acute fracture. Soft tissues: Unremarkable. Other findings: No evidence for large vessel occlusion. IMPRESSION: 1. No evidence for large vessel occlusion. 2. There is a 1.2 mm left PCOM infundibulum or aneurysm axial image 7/391. Thin section MRA may be helpful. 3. Patent right PCOM.
[2024-06-21] MEDS: ONDANSETRON 4MG/2ML VIAL 4 MG IV (21:53)
[2024-06-21] MEDS: 0.9 % SODIUM CHLORIDE 1000ML 1,000 ML 999 ML IV (21:55)
[2024-06-21 21:58] LABS: INR 0.91 (0.9-1.1); Prothrombin Time 10.3 seconds (10.1-12.5)
[2024-06-21 22:00] LABS: Albumin Level 4.1 g/dl (3.5-5.0); Basophils % 0.8 % (0.1-2.0); Chloride 107 mmol/L (98-107); Eosinophils # 0.3 K/mm3 (0.0-0.4); Eosinophils % 6.5 % (0.1-12.0); Hematocrit 41.5 % (37.0-47.0); Hemoglobin 13.2 g/dL (12.2-16.2); Lymphocytes # 1.6 K/mm3 (0.7-4.5); Lymphocytes % 30.9 % (10-50); Mean Corpuscular HGB Conc 31.8 g/dL (31.8-35.4); Mean Corpuscular Hemoglobin 30.3 pg (27.0-31.2); Mean Corpuscular Volume 95.4 fl (81-99); Mean Platelet Volume 9.3 fl (7.4-10.4); Monocytes # 0.4 K/mm3 (0.1-1.0); Monocytes % 8.2 % (1.7-9.3); Neutrophils # 2.7 K/mm3 (1.8-7.8); Neutrophils % 53.2 % (37.0-80.0); Platelet Count 253 K/mm3 (142-424); Red Blood Count 4.35 M/mm3 (4.20-5.40); Red Cell Distribution Width 13.1 % (11.5-17.5); White Blood Count 5.1 K/mm3 (4.8-10.8)
[2024-06-21 22:01] LABS: Potassium 3.4 mmoL/L (3.5-5.1); Sodium 137 mmol/L (136-145)
[2024-06-21 22:03] LABS: Alanine Aminotransferase 26 U/L (12-78); Aspartate Amino Transferase 44 U/L (14-36); Blood Urea Nitrogen 23 mg/dl (7-17); Creatinine Clearance Estimated 37 mL/min (50-200); Estimated Glomerular Filt Rate 68 ml/min (>60); GFR (African American) 82 ML/MIN (>60)
[2024-06-21 22:04] LABS: Albumin/Globulin Ratio 1.3 (1.1-1.8); Alkaline Phosphatase 74 U/L (38-126); Anion Gap 5.4 mEq/L (5-15); Bilirubin,Total 0.4 mg/dl (0.2-1.3); Calcium 9.2 mg/dl (8.4-10.2); Carbon Dioxide 28 mmol/L (22.0-30.0); Creatine Kinase 110 U/L (30-135); Globulin 3.2 g/dL (1.3-3.2); Glucose 108 mg/dl (74-100); Total Protein,Serum 7.3 g/dl (6.3-8.2)
[2024-06-21 22:22] LABS: Magnesium 2.2 mg/dl (1.6-2.3)
[2024-06-21] MEDS: SODIUM CHLORIDE 0.9% 10ML SYR (RAD ONLY) 10 ML IV (22:22)
[2024-06-21] MEDS: 0.9 % SODIUM CHLORIDE 50 ML VIAL 40 ML IV (22:22)
[2024-06-21] MEDS: IOPAMIDOL-370 (76%);100ML BOTTLE 80 ML IV (22:23)
[2024-06-21 22:30] LABS: Troponin I < 0.01 ng/ml (0.00-0.034)
[2024-06-21 22:30] LABS: Adenovirus,PCR Not Detected (NotDetected); Bordetella Pertussis Not Detected (NotDetected); Chlamydophila Pneumoniae, PCR Not Detected (NotDetected); Coronavirus 19, PCR Not Detected (NotDetected); Coronavirus 229E Not Detected (NotDetected); Coronavirus NL63 Not Detected (NotDetected); Coronavirus OC43 Not Detected (NotDetected); Coronovirus HKU1,PCR Not Detected (NotDetected); Human Metapneumovirus Not Detected (NotDetected); Influenza A, PCR Not Detected (NotDetected); Influenza AH1, 2009 Not Detected (NotDetected); Influenza AH1, PCR Not Detected (NotDetected); Influenza AH3,PCR Not Detected (NotDetected); Influenza B, PCR Not Detected (NotDetected); Mycoplasma Pneumoniae, PCR Not Detected (NotDetected); Parainfluenza 1, PCR Not Detected (NotDetected); Parainfluenza 2, PCR Not Detected (NotDetected); Parainfluenza 3, PCR Not Detected (NotDetected); Parainfluenza 4, PCR Not Detected (NotDetected); Respiratory Syncytial Virus Not Detected (NotDetected); Rhinovirus/Enterovirus Not Detected (NotDetected)
[2024-06-21 22:40] LABS: Free Thyroxine Index 2.7 ug/dL (5.93-13.13); T4 (Thyroxine) 8.5 ug/dl (5.53-11.0); Triiodothryronine (T3) Uptake 32 % (23.5-40.5)
--- NOTE | 2024-06-21 23:24 | ECG_ITS ---
APPROVED REPORT Exam: Resting ECG HR:58 bpm ECG Measurements Heart Rate 58 AXES VA 212 P 79 QRSd 91 QRS -5 QT 417 T 95 QTc 413 Conclusion SINUS BRADYCARDIA WITH FIRST DEGREE AV BLOCK POSSIBLE LEFT ATRIAL ENLARGEMENT [-0.1mV P-WAVE IN V1/V2] INCOMPLETE RIGHT BUNDLE BRANCH BLOCK [90+ ms QRS DURATION, TERMINAL R IN V1/V2, 40+ ms S IN I/aVL/V4/V5/V6] SEPTAL MYOCARDIAL INFARCTION , PROBABLY OLD [40+ ms Q WAVE IN V1/V2] ABNORMAL ECG UNCONFIRMED REPORT Electronically signed by : CODIE ALDANA, 06/22/2024 07:06:31
[2024-06-22 00:40] LABS: Microscopic, Urine URINE MICROSCOPIC (MICROSCOPIC)
[2024-06-22 01:02] LABS: Appearance,Urine CLEAR (Clear); Bilirubin,Urine Negative (Negative); Blood, Urine TRACE-I (Negative); Color,Urine YELLOW (Yellow); Glucose,Urine (UA) Negative (Negative); Ketones,Urine Negative (Negative); Leukocyte Esterase,Urine Negative (Negative); Nitrate,Urine Negative (Negative); PH,Urine 6.5 (5.0-8.5); Protein,Urine Negative (Negative); Specific Gravity, Urine 1.015 (1.005-1.030); Urobilinogen,Urine 0.2 EU/dl (0.2)
[2024-06-22 01:18] LABS: Bacteria,Urine Trace /lpf; Squamous Epithelial Cell,Urine Occasional #/hpf (0-5)
[2024-06-22 01:53] LABS: Troponin I < 0.01 ng/ml (0.00-0.034)
[2024-06-22 01:57] VITALS: BP 114/69; PULSE 57; RESP 16; TEMP 36.6; O2SAT 97
== END 2024-06-22 02:09 | disposition home or self-care (01) ==
PROVIDERS: Physician Assistant; Emergency Provider Emergency Medicine
DX: R56.9 Unspecified convulsions (principal); R93.0 Abnormal findings on diagnostic imaging of skull and head, not elsewhere classified; E04.1 Nontoxic single thyroid nodule; R79.89 Other specified abnormal findings of blood chemistry; R41.82 Altered mental status, unspecified; R11.10 Vomiting, unspecified
CPT/HCPCS: 70450; 70496; 70498; 80053; 81001; 82550; 83735; 84436; 84443; 84479; 84484; 85025; 85610; 87633; 93005; 96361; 96374; 99291; J2405; J7030; Q9967